=== PATIENT | female | born 1945 | race Caucasian/White ===

== ENCOUNTER 2017-12-04 07:30 | Inpatient (IN) ==
--- NOTE | 2018-01-01 12:12 | History and Physical ---
CHIEF COMPLAINT Right hip pain. HISTORY OF PRESENT ILLNESS This 72-year-old lady has had pain in the right hip for many months. Pain is described as aching and dull. It is intermittent. It does radiate down her leg. It is aggravated by weather, movement, weightbearing, walking, stairs, squatting, bending, prolonged sitting. Treatments have included pain medication , rest, corticosteroid injection, Tylenol and ibuprofen as well as heat and physical therapy. She does have pain at night that awakens her from sleep. Her pain is becoming increasingly disabling and is affecting her ADLs. Her x- rays are consistent with advanced arthritis and she is scheduled for an elective right total hip replacement with anticipated surgery on 01/08/2018. Her past medical history including allergies, medication, illnesses, social history, surgical history, and family history are all included on the chart. Please refer to that for details. REVIEW OF SYSTEMS Constitutional: Negative for chills, fever, fatigue, malaise, or weight loss. HEENT: Negative for headache, or dizziness. Respiratory: Negative for cough, shortness of air, recent respiratory infections, or wheezing. Cardiovascular: Negative for chest pain, palpitations, leg swelling, or syncope. Gastrointestinal: Negative for abdominal pain, constipation, diarrhea, vomiting , heartburn, or nausea. Skin: Negative for skin infection or rash. Neurological: Negative for numbness of extremity or seizures. Psychiatric: Negative for anxiety or depression. Hematologic/Lymphatic: Negative for easy bleeding or easy bruising. PHYSICAL EXAMINATION GENERAL: 72-year-old lady, alert and oriented, in no acute distress. She is healthy appearing. She is alert and oriented. EXTREMITIES: The right lower extremity shows no deformity, is normal to inspection. She has a negative straight leg raise. She does have some tenderness over the greater trochanteric bursa. Skin is without lesions. She has normal range of motion of the knee but hip range of motion is painful and limited with internal rotation. Neurologically she has no deficits and is fully intact. Vascular exam shows a normal dorsalis pedis pulse. ASSESSMENT Severe primary arthritis of the right hip. PLAN The patient is admitted for elective right total hip replacement on 01/08/2018. Please refer to further details in Dr. Amaral's plan on his office note dated . BALDO
[2018-01-08] MEDS ORDERED: ONDANSETRON 4 MG/2 ML INJECTION IVP ONE (06:00)
[2018-01-08] MEDS ORDERED: FAMOTIDINE PB 20 MG/50 ML BAG IV ONE (06:00)
[2018-01-08] MEDS ORDERED: METOCLOPRAMIDE 10mg/2ml INJECTION IVP ONE (06:00)
[2018-01-08] MEDS ORDERED: CLINDAMYCIN PB 900 MG/50 ML BAG IV ONE (06:00)
[2018-01-08] MEDS ORDERED: TRANEXAMIC ACID 1,000 MG in NS 100 ML IV ONE ×2 (06:00→07:00)
[2018-01-08] MEDS ORDERED: ACETAMINOPHEN 500 MG TABLET PO ONE (06:00)
[2018-01-08] MEDS ORDERED: EPINEPHrine PF 0.25 MG, BUPIVACAINE 0.25% PF 30 ML, KETOROLAC INJ 60 MG in NS 30 ML OPSITE ONE (08:00)
[2018-01-08 09:38] VITALS: BMI 29.8
[2018-01-08] MEDS ORDERED: VANCOMYCIN 1,000 MG INJECTION IAR ONE (09:42)
[2018-01-08] MEDS ORDERED: SALINE FLUSH 10ml SYRINGE IV PRN (10:19)
[2018-01-08] MEDS: LIDOCAINE 1% (10mg/ml) 2mL INJ PF SDV ID ONE ×2 (10:25→10:52)
[2018-01-08] MEDS: LR 1,000 ML IV SCH ×2 (10:35→13:11)
[2018-01-08] MEDS: NOZIN NASAL SWAB NAS SCH ×4 (10:36→21:22)
--- NOTE | 2018-01-08 11:37 | Anesthesia Preoperative Report ---
Anesthesia Preoperative Record - Date and Time Date: 01/08/18 Preoperative Diagnosis: Rt KAREN M16.11 Allergies/Adverse Reactions: Allergies Allergy/AdvReac Type Severity Reaction Status Date / Time Penicillins Allergy Mild HIVES Verified 01/08/18 09:51 codeine AdvReac NAUSEA Verified 01/08/18 09:51 - Vital Signs Vital Signs: Temperature 97.6 F 01/08/18 09:36 Pulse Rate 61 01/08/18 09:36 Respiratory Rate 14 01/08/18 09:36 Blood Pressure 143/72 H 01/08/18 09:36 Pulse Oximetry 96 01/08/18 09:36 Height and Weight: Height 5 ft 2 in Weight 74.1 kg Body Mass Index 29.8 - Medications Inpatient Medications: Current Medications Epinephrine HCl 0.25 mg/Bupivacaine HCl 30 ml/Ketorolac Tromethamine 60 mg/ Sodium Chloride 62.25 mls @ 1 mls/hr OPSITE INTRAOP ONE; Protocol Stop: 01/10/18 22:14 Lactated Ringer's (Lactated Ringers) 1,000 mls @ 50 mls/hr IV .Q20H WYATT Last Admin: 01/08/18 10:35 Dose: 50 mls/hr Sodium Chloride (Iv Flush) 10 - 80 ml IV PRN PRN PRN Reason: Flushing Home Medications: Home Medications Medication Instructions Recorded Confirmed Type Celexa (citalopram) 40 mg tablet 40 mg PO DAILY 11/30/16 01/08/18 History Calcium 600 + D [Caltrate + D] 1 tab PO BID 12/31/17 01/08/18 History Gentamicin Eye Drops [Garamycin 1 drop OP BID 01/07/18 01/08/18 History O/S] Acetaminophen [Tylenol] 500 mg PO BID 01/08/18 01/08/18 History Glucosamine/Chondroitin [Osteo 2 cap PO DAILY 01/08/18 01/08/18 History Bi-Flex] Multivitamin [One Daily 1 tab PO DAILY 01/08/18 01/08/18 History Multivitamin] Sodium Chloride/Sodium Bicarb 1 dose EA NOSTRIL DAILY 01/08/18 01/08/18 History [Sinus Wash Saline Packet] Systane Eye Drops 1 drop EACH EYE PRN PRN 01/08/18 01/08/18 History Is Patient on Beta Davin?: No - Medical History Respiratory: Reports: Bronchitis (one week ago--resolved) DENIES: Sleep Apnea Gastrointestional: Reports: Gastroesophageal Reflux Disease (not on meds now) Neuro/Musculoskeletal: Reports: Depression Renal/Endocrine: Reports: Thyroid Disease (hx of-not on meds now) - Surgical History HEENT Surgeries: Reports: Tonsillectomy, Other (sinus surgery) GI Surgery/Treatments: Reports: Appendectomy, Colonoscopy Musculoskeletal Surgery/Tx: Reports: Other (karthik bunionectomy) Reproductive Surgery/Treatment: Reports: Hysterectomy, Tubal Ligation Anesthesia Reactions: None Hx Family Anesthesia Reaction: No History of Motion Sickness: No - Social History Smoking Status: Former smoker Hx Chewing Tobacco Use: No Second Hand Exposure: No Substance Use Type: does not use Alcohol Intake Frequency: does not drink - Pertinent Findings Laboratory: CBC and BMP 01/08/18 09:50 EKG: Sinus Rhythm - Physical Exam Respiratory Exam: Present: lungs clear Cardiovascular Exam: Present: regular rate and rhythm - Airway Assessment Mallampati Score: II TMD: 3 Fingerbreadths Neck Extension: good Overall Assessment: no airway concerns - ASA ASA Score: 2 - Plan Anesthesia: Neuroaxial Regional/Trunk Block: Spinal - Discussion Discussion: Discussed risks/options/alternatives of anesthesia and questions answered. Patient consents. Nursing pain assessment noted. Present for Discussion: spouse, family member Attestation Statement: Prior to the delivery of any anesthetic medication, I examined the patient, developed the plan, obtained the patient's consent and discussed the risk and benefits of the procedure with the patient/guardian. - Additional Information Seen by Anesthesia: Yes
[2018-01-08] MEDS ORDERED: VANCOMYCIN 1,000 MG INJECTION ONE (11:48)
[2018-01-08] MEDS ORDERED: FentaNYL 100 MCG/2 ML INJECTION ONE (11:50)
[2018-01-08] MEDS ORDERED: MIDAZOLAM 2mg/2ml INJECTION ONE (11:50)
[2018-01-08] MEDS ORDERED: PROPOFOL 500 MG/50 ML VIAL ONE (11:52)
[2018-01-08] MEDS ORDERED: CEFAZOLIN 1 G INJECTION IVP ONE (12:00)
[2018-01-08] MEDS ORDERED: BUPIVACAINE 0.75%/DEXTROSE 8.5% SPINAL 2 ML AMPULE IJ ONE (12:18)
[2018-01-08] MEDS ORDERED: LIDOCAINE 2% (100mg/5mL) 5ml PF SDV ONE (12:18)
[2018-01-08] MEDS ORDERED: EPHEDRINE 50mg/ml INJECTION ONE (12:39)
[2018-01-08] MEDS ORDERED: SALINE FLUSH 10ml SYRINGE ONE (12:40)
[2018-01-08] MEDS ORDERED: PHENYLEPHRINE INJ 10 MG/ML VIAL IV ONE (12:40)
--- NOTE | 2018-01-08 13:54 | Operative Note ---
- Procedure Preoperative Diagnosis: Right hip primary degenerative joint disease Postoperative Diagnosis: Same as preoperative diagnosis. Surgeon: Liz Amaral MD Calender Roll Operator: Paolo Hyde Complications: None. Anesthesia: Spinal. Estimated Blood Loss: See Anesthesia Record. Fluids: Please see Anesthesia Record. Description of Procedure: Mrs. Roldan and her right hip were identified and marked in the preoperative holding area. She was brought back to the operating suite and spinal anesthetic was administered. She was then placed in a lateral decubitus position with her right hip up. The right lower extremity was prepped and draped in my normal sterile fashion. Timeout was performed. The Music[employer] robotic arm was used to assist with the surgery. A pelvic array was placed into the iliac crest through three small incisions. A direct superior approach was utilized. An approximately 15 cm incision was made in the skin and dissection carried down to the muscle fascia which was then split in line with skin incision. The short external rotators were identified and tagged and detached. A capsulotomy was performed and the hip dislocated. A femoral neck osteotomy was performed at the pre-templated level measuring down from the femoral head. The head was removed and acetabulum exposed. Labrum was removed. The acetabulum was then registered with the robot. The robotic arm was then used to ream with a 49 reamer. The robot then was again used to place a 50 Trident cup in 40 of tilt and 25 of anteversion. A liner was then placed. The proximal femur was exposed and prepared with a cookie cutter followed by reaming and broaching to a size 5. We trialed with a standard head. This felt good she was a touch long so we recut with a -2.5 head. After thorough irrigation a final Accolade 2 size 5 stem with 127 neck was placed. Leg length and offset were checked with the robot and were good. A final -2.536 mm ceramic head was placed and the hip reduced. Betadine solution was used to irrigate throughout the case. It was followed by normal saline irrigation. Joint cocktail was injected throughout soft tissue. The capsulotomy was repaired with Ethibond. Short external rotators were also repaired with Ethibond. 1 g of vancomycin powder was placed into the wound. The muscle fascia was then repaired with #1 Vicryl. I then left my medical staff assistant to close the subcutaneous tissue with 2-0 Vicryl followed by running 4-0 Monocryl skin followed by Dermabond and a sterile dressing. The patient with any placed back into supine position and taken to recovery room in the care of anesthesia.
[2018-01-08] MEDS ORDERED: PROPOFOL 20 ML ONE (14:18)
[2018-01-08] MEDS ORDERED: DiphenhydrAMINE 50 MG/ML INJECTION IVP PRN (14:59)
[2018-01-08] MEDS ORDERED: DiphenhydrAMINE 25 MG CAPSULE PO PRN (14:59)
[2018-01-08] MEDS ORDERED: SYSTANE EYE DROPS 0.7ml EACH EYE PRN (14:59)
[2018-01-08] MEDS ORDERED: DEXAMETHASONE 20 MG/5 ML INJECTION IVP ONE (14:59)
[2018-01-08] MEDS ORDERED: LORazepam 1 MG TABLET PO PRN (14:59)
[2018-01-08] MEDS ORDERED: NOZIN NASAL SWAB NAS ONE (14:59)
[2018-01-08] MEDS ORDERED: ONDANSETRON 4 MG/2 ML INJECTION IVP PRN (14:59)
[2018-01-08] MEDS: NS 1,000 ML IV SCH (15:10)
--- NOTE | 2018-01-08 15:42 | XRay Report ---
Indication: postoperative image PROCEDURE: XR pelvis w/ 1 view RT hip: Encounter: Initial Comparison: July 30, 2017 Findings: Postoperative changes of right total hip replacement are seen. There is expected postoperative subcutaneous gas. No evidence of hardware failure or acute fracture. No retained radiopaque surgical instruments or sponges seen. Impression: New right total hip prosthesis without evidence of immediate complication. .
[2018-01-08] MEDS: NAPROXEN 220 MG TABLET PO SCH (17:09)
[2018-01-08] MEDS: ACETAMINOPHEN 325 MG TABLET PO SCH ×2 (17:09→21:22)
[2018-01-08] MEDS: CLINDAMYCIN PB 900 MG/50 ML BAG IV SCH (18:01)
[2018-01-08] MEDS ORDERED: SENNOSIDES 8.6 MG TABLET PO SCH (21:00)
[2018-01-08] MEDS: TRAMADOL 50 MG TABLET PO PRN ×2 (21:21→23:17)
[2018-01-08] MEDS: CALCIUM 600 + VIT D 400 TABLET PO SCH (21:21)
[2018-01-08] MEDS: ASPIRIN *EC* 81 MG TABLET PO SCH (21:22)
[2018-01-08] MEDS: GENTAMICIN 0.3% EYE DROPS 15ml OP SCH (21:23)
[2018-01-08] MEDS: DOCUSATE SODIUM 100 MG CAPSULE PO SCH (21:23)
[2018-01-09] MEDS: CLINDAMYCIN PB 900 MG/50 ML BAG IV SCH ×2 (00:50→05:26)
[2018-01-09] MEDS: TRAMADOL 50 MG TABLET PO PRN ×2 (05:25→12:56)
[2018-01-09] MEDS: NOZIN NASAL SWAB NAS SCH ×2 (05:44→14:45)
[2018-01-09] MEDS: NS 1,000 ML IV SCH (07:47)
[2018-01-09] MEDS: NAPROXEN 220 MG TABLET PO SCH (08:01)
[2018-01-09] MEDS: CALCIUM 600 + VIT D 400 TABLET PO SCH (08:02)
[2018-01-09] MEDS: DOCUSATE SODIUM 100 MG CAPSULE PO SCH (08:02)
[2018-01-09] MEDS: ASPIRIN *EC* 81 MG TABLET PO SCH (08:02)
[2018-01-09] MEDS: ACETAMINOPHEN 325 MG TABLET PO SCH ×2 (08:02→12:57)
--- NOTE | 2018-01-09 08:02 | Orthopedic Progress Note ---
Date: Date: 01/09/18 Time: 756 Subjective/Severity of Illness: Mrs Roldan is reporting her pain to be a "3" at this time. She took some pain meds an hr ago. Denies CP or feeling SOA. She coughs when using the I.S. and is on some O2 this AM. Sats 95%. She was up in the hallway with good tolerance. No other concerns at this time. Pt is hopeful to go home today. Hgb 10.4 , VSS , Orthopedic Exam Vital signs: Temperature 97.4 F 01/09/18 02:50 Pulse Rate 68 01/09/18 02:50 Respiratory Rate 20 01/09/18 05:25 Blood Pressure 126/66 01/09/18 02:50 Pulse Oximetry 95 01/09/18 02:50 - Constitutional General Appearance: Present: alert, cooperative, no acute distress - Respiratory Exam Present: non-labored - Cardiovascular Exam Present: pedal pulses intact - Extremities Exam Present: pulses intact. Absent: calf tenderness - Dressing Dressing: dry, intact, no drainage - Integumentary Exam Present: pink, warm, dry - Neurological Exam Present: no deficits - Psychiatric Exam Present: alert, normal affect - Labs Result Diagrams: 01/09/18 03:53 01/09/18 03:53 Abnormal lab results 01/08/18 01/09/18 01/09/18 Range/Units 09:50 03:53 03:53 Hgb 10.4 L D (12-16) GM/DL MPV 9.1 L (9.4-12.4) UM3 Neut % (Auto) 67.9 H (33-66) % Lymph % (Auto) 17.9 L (23-45) % Eos % (Auto) 6.0 H (0-4) % Chloride 108 H (98-107) MEQ/L H & H 01/08/18 01/09/18 Range/Units 09:50 03:53 Hgb 13.8 10.4 L D (12-16) GM/DL Hct 44.3 (36-46) % Orthopedic Assessment and Plan (1) Primary osteoarthritis of right hip Status: Acute Assessment and Plan: Aspirin protocol for VTE prophylaxis and SCDs for added protection. Wean from O2. Hx of bronchitis but no concerns at this time. Anemia by hx, hgb is 10.4 this AM. Will encourage MVI on discharge and f/u with PCP. PT/OT services to improve independent function. Discharge Planning per Case Management. - Anticoagulation Therapy Anticoagulation: ASA 81 mg PO BID x6 weeks Hospital Course Summary Disclaimer: The visit summary below is not to be considered part of the above Progress Note.
[2018-01-09 08:03] VITALS: RESP 16
[2018-01-09] MEDS: GENTAMICIN 0.3% EYE DROPS 15ml OP SCH (08:03)
[2018-01-09 08:44] VITALS: O2SAT 96
[2018-01-09] MEDS ORDERED: CITALOPRAM 40 MG TABLET PO SCH (09:00)
[2018-01-09] MEDS ORDERED: POLYETHYL GLYCOL 3350 17gm PACKET PO SCH (09:00)
--- NOTE | 2018-01-09 12:59 | Discharge Summary ---
Letter to PCP Cover Letter: This is a short letter to update you on your patient's status and to ask for your assistance in managing their postoperative medical needs. Loren Roldan underwent an elective right total hip arthroplasty by Dr. Amaral on 01/08/18. Aspirin 81mg was initiated for DVT prophylaxis and should be given BID for six weeks postoperatively. Details for their hospitalization can be found in the discharge summary attached. The patient is scheduled to see you one week after surgery for a post-operative check. I hope you find the discharge summary informative and helpful as you resume care of your patient after their surgery. If our office can be of any assistance, please feel free to contact us any time. Orthopedic Discharge Info Date of admission: 01/08/18 09:20 Primary care physician: Jefferson Campa MD Attending Physician: Keith Amaral MD Consults: 01/08/18 09:29 Consult to Anesthesiology [CONS] Routine Reason For Exam: Preoperative Assessment 01/08/18 14:59 Case Management Consult [CONS] Routine Reason For Exam: Discharge Planning DME-Walker [CONS] Routine Height: 5 ft 2 in Weight: 74.1 kg Total Joint Outpatient Therapy [CONS] Routine Comment: Remove dressing in 2 weeks - Discharge Diagnosis (1) Primary osteoarthritis of right hip Status: Acute - Procedures Rt KAREN 01/08/18 - Laboratory Result Diagrams: 01/09/18 03:53 01/09/18 03:53 Laboratory: Abnormal lab results 01/09/18 01/09/18 Range/Units 03:53 03:53 Hgb 10.4 L D (12-16) GM/DL Chloride 108 H (98-107) MEQ/L H & H 01/08/18 01/09/18 Range/Units 09:50 03:53 Hgb 13.8 10.4 L D (12-16) GM/DL Hct 44.3 (36-46) % Orthopedic Discharge HPI - HPI Comments This patient was admitted for elective surgical tx of end stage degenerative joint disease that failed to respond to conservative treatment. Further details of this is found in the admission H&P. Orthopedic Hospital Course Hospital course: 01/09/18 12:58 After appropriate preoperative clearance and signing of operative consent, the patient was given IV antibiotics, according to orthopedic protocol. The patient was taken to the operating room and underwent a right total hip arthroplasty on 01/08/18. Following surgery, antibiotics were discontinued less than 24 hours according to joint protocol. Aspirin was initiated and SCDs added for DVT prevention. The dressing was clean, dry, and intact. Pain control was obtained via multimodal approach. Bowel motivation addressed with scheduled and PRN medications. Early mobilization was initiated through PT services. Discharge arrangements made by a collaborative effort between the patient and Case Management. Post op hgb was 10.4 at discharge and BMP was normal. She was afebrile and VSS. No medical concerns at discharge. Follow-up is scheduled in 2-3 weeks. Discharge instructions given by orthopedic providers and nursing staff at discharge. Discharge condition was good. Care extended to > 2 midnight stays?: No Discharge Plan - Med Rec/Dispo Referrals/Follow Up: Paolo Hyde PA [Physician Wound Care Technician] - 01/30/18 9:45 am Jefferson Campa MD [Primary Care Provider] - 01/16/18 1:45 pm [facility] Instructions: [facility] Postop Instructions Prescriptions: New Aspirin *EC* [Ecotrin] 81 mg PO BID tablet Docusate Sodium [Colace] 100 mg PO BID capsule Naproxen [Aleve (Naproxen) 220 mg] 440 mg PO BIDWM tablet PEG 3350 17gm PACKET [Miralax] 17 gm PO DAILY packet Tramadol [Ultram] 50 - 100 mg PO Q6H PRN #50 tablet PRN Reason: Pain Acetaminophen [Tylenol] 650 mg PO QID tablet Milk of Magnesia [Mom] 30 ml PO DAILY udc Continue Glucosamine/Chondroitin [Osteo Bi-Flex] 2 cap PO DAILY Multivitamin [One Daily Multivitamin] 1 tab PO DAILY Systane Eye Drops 1 drop EACH EYE PRN PRN PRN Reason: Dry Eyes Calcium 600 + D [Caltrate + D] 1 tab PO BID Gentamicin Eye Drops [Garamycin O/S] 1 drop OP BID Sodium Chloride/Sodium Bicarb [Sinus Wash Saline Packet] 1 dose EA NOSTRIL DAILY Celexa (citalopram) 40 mg tablet 40 mg PO DAILY Discontinued Acetaminophen [Tylenol] 500 mg PO BID - Disposition Discharged Home, Self-Care - Dismissal Complete Discharge Instructions are:: Complete
[2018-01-09 13:03] VITALS: BP 112/63; PULSE 70; TEMP 97.7
[2018-01-09] MEDS ORDERED: SENNOSIDES 8.6 MG TABLET PO PRN (14:44)
[2018-01-10] MEDS ORDERED: BISACODYL 10 MG SUPPOSITORY RECTALLY SCH (20:00)
== END 2018-01-09 15:17 | disposition home or self-care (01) | DRG 470 ==
LOC: NMC.PERIOP 01-08 09:20 → SRG 01-08 15:01
PROVIDERS: ADMIT Orthopaedic Surgery; ATTEND Orthopaedic Surgery